=== PATIENT | male | born 1980 | race Caucasian/White ===

== ENCOUNTER 2020-03-15 20:16 | Emergency (ER) | payer SELFPAY ==
[~2020-03-15] VITALS: Ht 175.3 cm; Wt 104.5 kg
[~2020-03-15 20:16] MED LIST: AMOXICILLIN500 MG OR
[2020-03-15] MEDS ORDERED: KEFLEX500 M1 PO (20:41)
[2020-03-15 21:50] VITALS: BP 144/85
== END 2020-03-15 21:50 | disposition home or self-care (01) | DRG 605 ==
LOC: ED 20:16
PROC: 0HQEXZZ Repair Left Lower Arm Skin, External Approach (ICD-10-PCS; principal; 2020-03-15)
DX: S51.812A Laceration without foreign body of left forearm, initial encounter (principal); F17.200 Nicotine dependence, unspecified, uncomplicated; W55.22XA Struck by cow, initial encounter; Y93.89 Activity, other specified; Y92.73 Farm field as the place of occurrence of the external cause; Y99.0 Civilian activity done for income or pay